=== PATIENT | female | born 1985 | race Caucasian/White ===

== ENCOUNTER 2016-08-19 21:45 | Inpatient (IN) ==
[2016-08-19] MEDS ORDERED: Ipratropium/Albuterol Neb 3 ML IH ONE (21:58)
--- NOTE | 2016-08-19 22:17 | Emergency Department Note ---
Disposition Clinical Impression: Pneumonia Qualifiers: Pneumonia type: due to unspecified organism Laterality: bilateral Lung location : unspecified part of lung Qualified Code(s): J18.9 - Pneumonia, unspecified organism Disposition: Admitted As Inpatient Referrals: Mak Lowe CNP [Primary Care Provider] - Forms: ED Satisfaction Letter SOB HPI - General Chief Complaint: ED Shortness of Breath/Dyspnea Stated Complaint: LUIS CARLOS Time Seen by Provider: 08/19/16 21:52 Source: patient Limitations: no limitations Nursing Notes Reviewed: Yes Vital Signs Reviewed: Yes - History of Present Illness Patient here for evaluation of dyspnea and wheezing. Patient has a history of pneumonia approximately one year ago with several episodes of wheezing since then. Symptoms started approximately 2 weeks ago with increasing shortness of breath. She was seen by her family physician and placed on amoxicillin. Patient has had continued symptoms that since then with at-home albuterol. Patient states her symptoms are worsening despite treatment. Patient is allergic to steroids with prednisone, dexamethasone, Advair. Patient refusing any type of steroid medications at this time. She understands that even though she has the side effect of burning skin that this is a lung saving and potentially life-saving medication. - Related Data Home Medications Medication Instructions Recorded Confirmed FLUoxetine HCl [Prozac] 40 mg PO DAILY 02/13/16 03/16/16 Previous Rx's Medication Instructions Recorded Meloxicam [Mobic] 15 mg PO DAILY #7 tab 02/13/16 Orphenadrine [Norflex] 100 mg PO BID #14 tablet.er 02/13/16 Hydrocodone/Acetaminophen [Beverly 1 tab PO Q4H PRN #6 tab 03/16/16 5-325 Tablet] Penicillin VK 500 mg PO QID #40 tablet 03/16/16 Allergies Allergy/AdvReac Type Severity Reaction Status Date / Time Hydromorphone [From Dilaudid] Allergy See Verified 06/10/15 13:48 Comments ibuprofen [From Motrin] Allergy Gastrointestinal Verified 02/07/16 18:59 Upset prednisone Allergy See Verified 04/23/15 17:47 Comments cephalexin [From Keflex] AdvReac Vomiting Verified 04/23/15 17:47 Review of Systems: CONSTITUTIONAL: Fevers, chills, weakness No weight loss or fatigue. HEENT: Eyes: No visual changes. Ears, Nose, Throat: No hearing loss, difficulty talking or unable to swallow. SKIN: No rash or itching. CARDIOVASCULAR: No chest pain, chest pressure or chest discomfort. No palpitations or edema. RESPIRATORY: Shortness of breath, cough, sputum GASTROINTESTINAL: No anorexia, nausea, vomiting or diarrhea. No abdominal pain or blood. GENITOURINARY: No burning on urination or hematuria. NEUROLOGICAL: No headache, dizziness, syncope, paralysis, ataxia, numbness or tingling in the extremities. No change in bowel or bladder control. MUSCULOSKELETAL: No muscle pain, back pain, joint pain or stiffness. Past Medical History - Past Medical History Medical history: Reports: hyperlipidemia, other Psychiatric history: Reports: anxiety, depression DEMO COORDINATOR history: Reports: no DEMO COORDINATOR history - Social History Smoking Status: Current every day smoker Smokeless Tobacco Status: No Alcohol use: Reports: none Drug use: Reports: none Physical Exam General appearance: NAD, conversant Eyes: anicteric sclerae, moist conjunctivae; PERRL HENT: Atraumatic; oropharynx clear with moist mucous membranes and no mucosal ulcerations Neck: Normal inspection; Trachea midline; FROM, supple Lungs: Diffuse wheezing throughout all lung ring CV: RRR, no MRGs Abdomen: Soft, non-tender; no rebound or gaurding Extremities: No peripheral edema or extremity lymphadenopathy Skin: Normal temperature; no rash, ulcers or lesions Psych: Appropriate mood and affect Neuro: alert and oriented to person, place and time - General Limitations: no limitations General appearance: alert, in no apparent distress Course - Reevaluation(s) Reevaluation #1: Upon reevaluation of the patient, she appears much more comfortable. Patient states albuterols helped. Reevaluation #2: Chest x-ray shows bilateral infiltrates worse on the right. Patient has failed outpatient therapy. Patient was evaluated at bedside again and she is currently 90% on room air resting in bed. Her respiratory rate starting to increase again. . - Consultations Consultation #1: Discussed with Dr. Hamilton. Patient accepted for admission. Vital Signs Temperature 99.2 F 08/19/16 21:46 Pulse Rate 97 08/19/16 21:46 Respiratory Rate 22 08/19/16 21:46 Blood Pressure 121/77 08/19/16 21:46 O2 Sat by Pulse Oximetry 96 08/19/16 21:46 Temperature 99.2 F 08/19/16 21:46 Pulse Rate 80 08/20/16 01:06 Respiratory Rate 16 08/20/16 01:06 Blood Pressure 117/60 08/20/16 01:06 O2 Sat by Pulse Oximetry 93 08/20/16 01:06 Oxygen Delivery Oxygen Delivery Room Air Shortness of Breath/Dyspnea - Lab Data Result diagrams: 08/20/16 00:20 08/20/16 00:20 Lab Results 08/20/16 08/20/16 Range/Units 00:20 00:20 WBC 13.7 H (4.3-11.1) K/mcL RBC 4.02 (3.82-4.97) M/mcL Hgb 12.1 (11.5-15.4) g/dL Hct 37.2 (35.3-44.9) % MCV 92.5 (83.0-100.0) fL MCH 30.1 (28.0-33.3) pg MCHC 32.5 (31.6-35.5) g/dL RDW 13.2 (11.5-14.5) % Plt Count 268 (140-400) K/mcL MPV 9.5 (9.4-12.4) fL Immature Gran % 0.2 (0-4) % Seg Neutrophils % 66.1 % Lymphocytes % 25.3 % Monocytes % 7.0 % Eosinophils % 1.2 % Basophils % 0.2 % Neutrophils # 9.0 H (1.6-8.9) K/mcL Lymphocytes # 3.5 (0.6-4.6) K/mcL Monocytes # 1.0 (0.0-1.3) K/mcL Eosinophils # 0.2 (0.0-0.6) K/mcL Basophils # 0.0 (0.0-0.2) K/mcL Sodium 138 (136-145) mEq/L Potassium 4.1 (3.5-4.5) mEq/L Chloride 107 (98-109) mEq/L Carbon Dioxide 22 (19-29) mEq/L BUN 8 (7-20) mg/dL Creatinine 0.73 (0.57-1.11) mg/dL Est GFR ( Amer) > 60 (> 60) Est GFR (Non-Af Amer) > 60 (> 60) BUN/Creatinine Ratio 11 (6-26) Glucose 87 (70-99) mg/dL Calculated Osmolality 284 (280-300) Calcium 9.3 (8.6-10.8) mg/dL Attestation Statement - Attestation Attestation: I, Abraham Knott MD, personally evaluated this patient and discussed their management with the resident physician. I reviewed the resident's note and agree with the documented findings, medical decision making, and plan of care. 31-year-old female presents to the emergency department with a complaint of increasing shortness of breath for the past 2 weeks. She also complains of increased wheezing. She has a history of wheezing and shortness of breath intermittently for the past year since she had bilateral pneumonia. She was seen recently by her PCP and was given antibiotics which she just recently finished but states it did not seem to help and she seems to be getting worse. She is allergic to all steroids and refuses to take any steroids. She states they make her skin burning and painful for several days. She has had some fever and a productive cough with dark sputum. On examination patient is a well-developed obese female in no acute distress. She is alert and oriented 3. There is no cyanosis or diaphoresis. Breath sounds are decreased bilaterally with scattered bilateral inspiratory and expiratory wheezes. Heart regular with a mild tachycardia. Abdomen is soft and nontender with normal bowel sounds. Chest x-ray shows bilateral pneumonia, worse in the right upper lobe. The hospitalist, Dr. Hamilton, was consulted and accepted admission of the patient.
[2016-08-20] MEDS ORDERED: Levofloxacin 750 MG/150 ML 750 MG/150 ML BAG IVPB ONE (00:09)
[2016-08-20 00:33] LABS: Basophils % 0.2 %; Eosinophils # 0.2 K/mcL (0.0-0.6); Eosinophils % 1.2 %; Hematocrit 37.2 % (35.3-44.9); Hemoglobin 12.1 g/dL (11.5-15.4); Immature Granulocytes % 0.2 % (0-4); Lymphocytes # 3.5 K/mcL (0.6-4.6); Lymphocytes % 25.3 %; Mean Corpuscular HGB Conc 32.5 g/dL (31.6-35.5); Mean Corpuscular Hemoglobin 30.1 pg (28.0-33.3); Mean Corpuscular Volume 92.5 fL (83.0-100.0); Mean Platelet Volume 9.5 fL (9.4-12.4); Platelet Count 268 K/mcL (140-400); Red Blood Count 4.02 M/mcL (3.82-4.97); Red Cell Distribution Width 13.2 % (11.5-14.5); Segmented Neutrophils % 66.1 %
[2016-08-20 00:45] LABS: BUN/Creatinine Ratio 11 (6-26); Blood Urea Nitrogen 8 mg/dL (7-20); Calcium 9.3 mg/dL (8.6-10.8); Carbon Dioxide 22 mEq/L (19-29); Chloride 107 mEq/L (98-109); Glucose 87 mg/dL (70-99); Osmolality,Calculated 284 (280-300); Potassium 4.1 mEq/L (3.5-4.5); Sodium 138 mEq/L (136-145); eGFR For African Americans > 60 (> 60); eGFR For Non-African Americans > 60 (> 60)
[2016-08-20] MEDS ORDERED: Acetaminophen 325 MG TABLET PO PRN (02:17)
[2016-08-20] MEDS ORDERED: Ondansetron 4 MG/2 ML VIAL IVP PRN (02:47)
[2016-08-20] MEDS ORDERED: Naloxone 0.4 MG/ML INJ IVP PRN (02:47)
[2016-08-20] MEDS: Ipratropium/Albuterol Neb 3 ML IH SCH ×6 (03:50→23:56)
--- NOTE | 2016-08-20 03:53 | Internal Med History&Physical ---
Date of Encounter: 08/20/16 Time of Encounter: 03:50 Assessment and Plan (1) Acute exacerbation of chronic obstructive pulmonary disease (COPD) Current visit: Yes Status: Acute Likely related to underlying bronchitis. Chest x-ray is not impressive for pneumonia. Patient never been formally diagnosed with COPD but does complain of wheezing and given her shortness of breath with sputum production will treat as a COPD exacerbation. Antibiotics have been initiated with Levaquin 500 by mouth daily, scheduled DuoNeb nebs every 4 hours. Patient reports allergy to all types of steroid medication both systemic and inhaled so we will not give steroids at this time. (2) Chronic back pain Current visit: Yes Status: Acute Stable. Continue gabapentin and Flexeril. Qualifiers: Back pain location: low back pain Back pain laterality: unspecified Sciatica presence: with sciatica Sciatica laterality: sciatica laterality unspecified Qualified Code(s): M54.40 - Lumbago with sciatica, unspecified side; G89.29 - Other chronic pain (3) DVT prophylaxis Current visit: Yes Status: Acute Heparin 5000 units subcutaneous every 8 hours. Internal Medicine - H&P: HPI Chief complaint: Dyspnea Admitted From: Emergency Dept Plans for Post Hospital Care: Home History of present illness: Ms. Austin is a 31 year old female with history of VSD presents with shortness of breath and cough. Patient states her symptoms began approximately 2-1/2 weeks ago. She developed worsening shortness of breath with a cough that is productive with colored sputum at times it is been green, yellow, orange, or white. She states this feels similar to when she had pneumonia about a year ago. Patient states that she has had a fever every day for the past year, not measured higher than 101 at home however during this recent illness she measured her temperature as high as 104. Patient also reports some sinus pressure. She denies change in vision, chest pain, abdominal pain, nausea, vomiting, diarrhea, dysuria, lower shortness swelling, rash. Past Med Surg Social Fam HX - Past Medical History Medical history: hyperlipidemia Psychiatric history: anxiety, depression - Past Surgical History Surgical History: , cholecystectomy - Social History Smoking Status: Current every day smoker Smokeless Tobacco Status: No Alcohol use: none Drug use: none - Family History Mother Hx Family Cardiac Disorders: Yes Internal Medicine - H&P: Meds FLUoxetine HCl [Prozac] 40 mg PO DAILY 02/13/16 [History] Meloxicam [Mobic] 15 mg PO DAILY #7 tab 02/13/16 [Rx] Cyclobenzaprine [Flexeril] 10 mg PO TID 08/20/16 [History] Gabapentin [Neurontin] 300 mg PO TID 08/20/16 [History] Allergies Hydromorphone [From Dilaudid] Allergy (Verified 06/10/15 13:48) See Comments ibuprofen [From Motrin] Allergy (Verified 02/07/16 18:59) Gastrointestinal Upset prednisone Allergy (Verified 04/23/15 17:47) See Comments cephalexin [From Keflex] Adverse Reaction (Verified 04/23/15 17:47) Vomiting All Systems PM: A 10-system review of systems was performed and is negative for pertinent findings except as documented above in the HPI. - Constitutional Constitutional: chills, fever(s) - EENT Eyes: no blurry vision, no change in vision Ears: no ear discharge Nose, mouth and throat: sinus pain, sinus pressure, sore throat, no mouth lesions - Cardiovascular Cardiovascular ROS IM: dyspnea, dyspnea on exertion, lightheadedness, no chest pain, no edema, no syncope - Respiratory Respiratory: cough, dyspnea, dyspnea on exertion, wheezing, chest congestion, excessive phlegm production, change in phlegm color, no hemoptysis - Gastrointestinal Gastrointestinal: loose stools, no abdominal pain, no diarrhea, no nausea, no vomiting - Genitourinary Genitourinary: no dysuria, no hematuria, no urinary frequency, no urinary hesitancy, no urinary incontinence - Musculoskeletal Musculoskeletal ROS IM: back pain, no numbness, no tingling - Integumentary Integumentary IM: no erythema, no new lesions, no rash - Neurological Neurological ROS: no numbness, no tingling - Psychiatric Psychiatric: depression - Endocrine Endocrine IM: no polydipsia, no polyuria - Hematologic/Lymphatic Hematologic/Lymphatic: no easy bleeding, no easy bruising - Allergic/Immunologic Allergic/Immunologic: wheezing - Constitutional Vitals: Temp Pulse Resp BP Pulse Ox 100.3 F H 82 16 116/69 97 08/20/16 02:04 08/20/16 02:04 08/20/16 02:04 08/20/16 02:04 08/20/16 02:04 General appearance: Present: A&O X 3, pleasant, no acute distress - Head Head exam: Present: atraumatic, normal inspection, normocephalic - Eye Eye exam: Present: EOMI, PERRL - ENT ENT exam: Present: mucous membranes moist - Neck Neck exam general surgery: Absent: tenderness - Respiratory Respiratory exam: Present: wheezes (rare scattered). Absent: respiratory distress, rhonchi - Cardiovascular Cardiovascular exam: Present: RRR. Absent: gallop, rubs, systolic murmur, tachycardia - GI/Abdominal GI/Abdominal exam: Present: normal bowel sounds, soft. Absent: distended, tenderness - Extremities Exam Extremities exam: Present: warm. Absent: pedal edema, tenderness - Neurological Exam Neurological exam: Present: alert, CN II-XII intact, oriented X3, no focal deficits - Psychiatric Psychiatric exam: Present: anxious - Skin Skin exam: Present: dry, intact, warm Internal Med - H&P Results - Labs CBC & Chem 7: 08/20/16 00:20 08/20/16 00:20
--- NOTE | 2016-08-20 03:54 | Event Note ---
Date of Encounter: 08/20/16 Time of Encounter: 03:51 I examined this patient and my medical decision-making was reviewed with the CEMENT RUBBER/PA/Advanced Practice Nurse/Resident Physician. I agree with the documented findings, disposition and treatment plan as described except to the extent set forth below. Briefly, 31 yo CF with tobacco abuse presented to ER due to fever, chills and worsening shortness of breath with wheezing. On exam, patient has end expiratory wheezing. Not using accessory muscles of respiration. CXR personally reviewed- No significant change compared to prior CXR. No acute infiltrates visualized Labs reviewed A/P: 1. AE COPD - Admit to inpatient status. Duonebs. Abx. Hold off steroids due to allergy. Monitor pulm. status 2. Tobacco abuse - Counselled regarding cessation. Nicotine patch offered. Refused. 3. VSD history CAROLE AcostaBS
[2016-08-20] MEDS: FLUoxetine 20 MG CAPSULE PO SCH (08:11)
[2016-08-20] MEDS: *HR* Heparin 5,000 UNIT/ML VIAL SQ SCH ×2 (08:11→15:56)
[2016-08-20] MEDS: Gabapentin 300 MG CAPSULE PO SCH ×3 (08:11→20:03)
[2016-08-20] MEDS: Acetaminophen 325 MG TABLET PO PRN ×2 (08:12→20:44)
[2016-08-20] MEDS: Benzonatate 100 MG CAPSULE PO PRN ×2 (08:20→20:04)
--- NOTE | 2016-08-20 15:30 | Internal Med Progress Note ---
Date of Encounter: 08/20/16 Time of Encounter: 15:28 - Assessment and plan (1) Pneumonia Current Visit: Yes Status: Acute Assessment and plan: Chest XRay shows B/L perihilar infiltrates, failed outpatient treatment with PO Amoxicillin. Continue IV Levaquin and IV hydration; f/up blood cultures; leukocytosis stable and mild; no longer requiring supplemental O2; patient does have h/o- low grade fevers, being worked up as outpatient by Rheumatology; Patient will benefit from outpatient PFTs given her long smoking history, Pneumonia and B/L rhonchi; Qualifiers: Pneumonia type: due to unspecified organism Laterality: bilateral Lung location: unspecified part of lung Qualified Code(s): J18.9 - Pneumonia, unspecified organism (2) DVT prophylaxis Current Visit: Yes Status: Acute Assessment and plan: continue subcutaneous Heparin; (3) Tobacco abuse Current Visit: Yes Status: Chronic Assessment and plan: refuses Nicotine transdermal patch; - Subjective Interval history: Has persistent shortness of breath and hacking cough, slightly improved; chills but no fever; - Constitutional Vitals: Temp Pulse Resp BP Pulse Ox 99.5 F 67 18 106/65 93 08/20/16 10:32 08/20/16 10:32 08/20/16 11:19 08/20/16 10:32 08/20/16 11:19 General appearance: Present: A&O X 3, answers questions appropriately - Respiratory Respiratory exam: Present: CTAB (coarse breath sounds B/L), rhonchi (B/L diffuse rhonchi). Absent: accessory muscle use, rales, wheezes - Cardiovascular Cardiovascular exam: Present: RRR, +S1, +S2. Absent: diastolic murmur, gallop, rubs, systolic murmur - GI/Abdominal GI/Abdominal exam: Present: normal bowel sounds, soft, no peritoneal signs. Absent: distended, tenderness - Extremities Exam Extremities exam: Present: full ROM, warm, radial pulses palpable and symetrical. Absent: calf tenderness, cyanotic, pedal edema Internal Medicine: Result - Labs CBC & Chem 7: 08/20/16 00:20 08/20/16 00:20 Consult Discharge Plan - Plan Referrals: Mak Lowe CNP [Primary Care Provider] -
[2016-08-20] MEDS ORDERED: levoFLOXacin 500 MG TABLET PO SCH (23:59)
[2016-08-21] MEDS: *HR* Heparin 5,000 UNIT/ML VIAL SQ SCH ×2 (00:12→07:36)
[2016-08-21] MEDS: Benzonatate 100 MG CAPSULE PO PRN (01:07)
[2016-08-21] MEDS: Ipratropium/Albuterol Neb 3 ML IH SCH ×3 (04:15→11:10)
[2016-08-21] MEDS: Gabapentin 300 MG CAPSULE PO SCH (07:38)
[2016-08-21] MEDS: FLUoxetine 20 MG CAPSULE PO SCH (07:38)
[2016-08-21 08:31] LABS: Basophils % 0.3 %; Eosinophils # 0.4 K/mcL (0.0-0.6); Hematocrit 36.1 % (35.3-44.9); Hemoglobin 11.7 g/dL (11.5-15.4); Immature Granulocytes % 0.3 % (0-4); Lymphocytes # 3.1 K/mcL (0.6-4.6); Lymphocytes % 32.6 %; Mean Corpuscular HGB Conc 32.4 g/dL (31.6-35.5); Mean Corpuscular Hemoglobin 30.5 pg (28.0-33.3); Mean Corpuscular Volume 94.3 fL (83.0-100.0); Mean Platelet Volume 9.8 fL (9.4-12.4); Monocytes # 0.8 K/mcL (0.0-1.3); Monocytes % 8.7 %; Neutrophils # 5.1 K/mcL (1.6-8.9); Platelet Count 283 K/mcL (140-400); Red Blood Count 3.83 M/mcL (3.82-4.97); Red Cell Distribution Width 13.2 % (11.5-14.5); Segmented Neutrophils % 54.1 %
[2016-08-21 10:57] VITALS: BP 135/79
[2016-08-21] MEDS ORDERED: Beclomethasone 40mcg MDI IH SCH (14:00)
--- NOTE | 2016-08-21 14:17 | Discharge Summary ---
Date of Encounter: 08/21/16 Time of Encounter: 14:15 - Discharge Diagnosis (1) Pneumonia Priority: Primary Status: Acute Qualifiers: Pneumonia type: due to unspecified organism Laterality: bilateral Lung location: unspecified part of lung Qualified Code(s): J18.9 - Pneumonia, unspecified organism (2) Tobacco abuse Priority: Secondary Status: Chronic - Discharge Medications Prescriptions: levoFLOXacin [Levaquin] 750 mg PO Q24H 7 Days Home Medications: FLUoxetine HCl [Prozac] 60 mg PO DAILY 02/13/16 [History] Acetaminophen [Tylenol] 1,000 mg PO Q6HR PRN 08/20/16 [History] Albuterol Neb [Proventil Neb] 2.5 mg IH Q4H PRN 08/20/16 [History] Albuterol Sulfate [Proair Hfa] 2 puff IH Q4-6H PRN 08/20/16 [History] Cyclobenzaprine [Flexeril] 10 mg PO TID 08/20/16 [History] Fluticasone/Salmeterol [Advair 100-50 Diskus] 1 puff IH BID 08/20/16 [History] Gabapentin [Neurontin] 300 mg PO TID 08/20/16 [History] Medroxyprogesterone Acetate [Depo-Provera] 150 mg IM [id number] 08/20/16 [History] Meloxicam [Mobic] 7.5 mg PO DAILY 08/20/16 [History] Potassium 99 mg PO DAILY 08/20/16 [History] levoFLOXacin [Levaquin] 750 mg PO Q24H 7 Days 08/21/16 [Rx] Allergies/Adverse Reactions: Allergies Hydromorphone [From Dilaudid] Allergy (Verified 06/10/15 13:48) See Comments ibuprofen [From Motrin] Allergy (Verified 02/07/16 18:59) Gastrointestinal Upset prednisone Allergy (Verified 04/23/15 17:47) See Comments cephalexin [From Keflex] Adverse Reaction (Verified 04/23/15 17:47) Vomiting Date of admission: 08/20/16 02:48 Primary care physician: Mak Lowe CNP Discharging clinician: Augustina Rodriguez Anticipated date of discharge: 08/21/16 - Patient Status Disposition: Home, Self-Care Condition: Good Functional capacity at discharge: independent ambulation Overall status at discharge: patient is progressing back to baseline - Discharge Instructions Instructions: Levofloxacin (By mouth), How to Stop Smoking (DC), Cigarette Smoking and Your Health (GEN), Chronic Obstructive Pulmonary Disease (DC), Pneumonia (DC) Follow Up With: Mak Lowe CNP [Primary Care Provider] - 08/24/16 2:00 pm - Diet and Activity Activity: resume usual activities as tolerated Diet: advance to your usual diet Hospital course: Ms. Austin is a 31 year old female with chronic tobacco abuse and possible underlying obstructive lung disease, was admitted with cough and shortness of breath. Patient failed outpatient treatment with oral amoxicillin for possible bronchitis. Chest x-ray done in the emergency room showed bilateral perihilar infiltrates, right more than left. She was started on IV antibiotics-IV Levaquin. Patient also likely has underlying COPD although she has no formal pulmonary function testing done. She has history of an adverse reaction to steroid use with hyperesthesia and hyperalgesia of her skin due to possible dermal edema as a side effect of steroids and so she has not been started on oral or IV steroids during this admission. She was started on scheduled bronchodilators and after discussing with pulmonology was started on inhaled corticosteroids. Blood cultures remain negative and patient improved gradually. She continues to have some exertional dyspnea but does not require supplemental oxygen and not noted to be in respiratory distress and is otherwise medically stable for discharge with oral antibiotics and outpatient follow-up. Time spent discussing smoking cessation with patient: 3 to 10 minutes - Time Spent with Patient Total time spent providing and/or coordinating discharge services: Greater than 30 minutes (50 min) - Constitutional Vitals: Temp Pulse Resp BP Pulse Ox 100.0 F H 72 14 135/79 96 08/21/16 10:56 08/21/16 10:56 08/21/16 11:10 08/21/16 10:56 08/21/16 11:10 General appearance: Present: A&O X 3, answers questions appropriately - Respiratory Respiratory exam: Present: rhonchi (B/L scattered rhonchi). Absent: accessory muscle use, rales, wheezes - Cardiovascular Cardiovascular exam: Present: RRR, +S1, +S2. Absent: diastolic murmur, gallop, rubs, systolic murmur
--- NOTE | 2016-08-21 18:01 | Electrocardiograph Report ---
[place] [id number] Test Date: 2016-08-19 Pat Name: Janel Austin Department: 105 Room: 3B49 Gender: Monument Mason: ALESSIO : 1985 Requested By: Francine Rodriguez Order Number: [id number] Reading MD: Janki Rojas Measurements Intervals Wright Rate: 72 P: 55 WI: 166 QRS: 0 QRSD: 92 T: 19 QT: 367 QTc: 391 Interpretive Statements SINUS RHYTHM POSSIBLE LEFT ATRIAL ENLARGEMENT [-0.1mV P WAVE IN V1/V2] POSSIBLE RIGHT VENTRICULAR CONDUCTION DELAY [RSR (QR) IN V1/V2] POSSIBLE LEFT VENTRICULAR HYPERTROPHY [VOLTAGE CRITERIA PLUS LAE OR QRS WIDENING] Electronically Signed On 08-21-2016 17:59:47 EDT by Janki Rojas
== END 2016-08-21 15:00 | disposition home or self-care (01) | DRG 190 ==
LOC: 3BNU 21:45 → EMEROO 21:45 → 3BNU 08-20 01:58 → SUATTDRO 08-20 02:48
PROVIDERS: ADMIT Internal Medicine Sleep Medicine; ATTEND Internal Medicine